=== PATIENT | female | born 1955 | race Caucasian/White ===

== ENCOUNTER → 2017-10-13 | Outpatient (CLI) | payer OTHER | END | disposition home or self-care (01) | LOC: CFH 14:55 | PROVIDERS: ATTEND Nurse Practitioner Family | DX: Z12.31 Encounter for screening mammogram for malignant neoplasm of breast (principal) | CPT/HCPCS: 77063; 77067 ==

== ENCOUNTER → 2018-12-01 | Outpatient (CLI) | payer OTHER | END | disposition home or self-care (01) | LOC: RAD 16:30 | PROVIDERS: ATTEND Nurse Practitioner Family | DX: M16.0 Bilateral primary osteoarthritis of hip (principal) | CPT/HCPCS: 73523 ==